=== PATIENT | male | born 1990 | race Caucasian/White ===

== ENCOUNTER → 2017-02-06 | Outpatient (CLI) | payer BC | LOC: LAB 08:54 | DX: J02.9 Acute pharyngitis, unspecified (principal) | CPT/HCPCS: 36415; 86403; 87081; 87880 ==

== ENCOUNTER → 2021-10-31 | Outpatient (CLI) | payer OTHER | LOC: OPSV 20:45 | DX: U07.1 COVID-19 (principal) | CPT/HCPCS: U0002; U0003 ==